=== PATIENT | female | born 1960 ===

== ENCOUNTER 2016-09-16 19:33 | Emergency (ER) | payer OTHER ==
[2016-09-16] MEDS ORDERED: COZAAR50 M1 PO (19:41)
[2016-09-16] MEDS ORDERED: CELEBREX100 M1 PO (19:41)
[2016-09-16] MEDS ORDERED: SYNTHROID100 MC1 PO (19:42)
[2016-09-16] MEDS ORDERED: EFFEXOR XR150 M1 PO (19:42)
== END 2016-09-16 20:53 ==
LOC: EDMED 19:33
PROC: 0HQFXZZ Repair Right Hand Skin, External Approach (ICD-10-PCS; principal; 2016-09-16)
DX: S61.300A Unspecified open wound of right index finger with damage to nail, initial encounter (principal); I10 Essential (primary) hypertension; W45.8XXA Other foreign body or object entering through skin, initial encounter; Y92.009 Unspecified place in unspecified non-institutional (private) residence as the place of occurrence of the external cause